=== PATIENT | female | born 1985 | race Asian ===

== ENCOUNTER → 2017-05-03 | Outpatient (CLI) | payer BC, MEDICAID ==
--- NOTE | 2017-05-03 10:46 | WOMENS IMAGING REPORT ---
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 TECHNIQUE: Real-time and static grayscale imaging performed of the right and left breast targeted to the area of clinical/mammographic concern. Selected color Doppler images recorded. LIMITATIONS: None. FINDINGS: MASS: No mass identified. Normal glandular tissue. OTHER: No other significant finding. IMPRESSION: No suspicious findings detected by ultrasound. BIRAD: 1 Negative. RECOMMENDATION: RECOMMENDED FOLLOW-UP: Follow-up as clinically indicated. COMMENT: The [employer] (ACR) has developed recommendations for screening MRI of the breasts in certain patient populations, to be used in conjunction with mammography. Breast MRI s urveillance may be appropriate for women with more than 20% lifetime risk of developing breast cancer as determined by genetic testing, significant family history of the disease, or history of mantle r adiation for Hodgkins Disease. ACR Practice Guidelines 2008. TECHNICAL DOCUMENTATION: JOB ID: [id number] [employer]- All Rights Reserved
--- NOTE | 2017-05-03 10:46 | WOMENS IMAGING REPORT ---
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 TECHNIQUE: Real-time and static grayscale imaging performed of the right and left breast targeted to the area of clinical/mammographic concern. Selected color Doppler images recorded. LIMITATIONS: None. FINDINGS: MASS: No mass identified. Normal glandular tissue. OTHER: No other significant finding. IMPRESSION: No suspicious findings detected by ultrasound. BIRAD: 1 Negative. RECOMMENDATION: RECOMMENDED FOLLOW-UP: Follow-up as clinically indicated. COMMENT: The [employer] (ACR) has developed recommendations for screening MRI of the breasts in certain patient populations, to be used in conjunction with mammography. Breast MRI s urveillance may be appropriate for women with more than 20% lifetime risk of developing breast cancer as determined by genetic testing, significant family history of the disease, or history of mantle r adiation for Hodgkins Disease. ACR Practice Guidelines 2008. TECHNICAL DOCUMENTATION: JOB ID: [id number] [employer]- All Rights Reserved
== END ==
LOC: WI 09:08
PROVIDERS: ATTEND Physician Assistant
DX: N60.11 Diffuse cystic mastopathy of right breast (principal); N60.12 Diffuse cystic mastopathy of left breast
CPT/HCPCS: 76642

== ENCOUNTER 2019-02-23 20:41 | Emergency (ER) | payer BC ==
[2019-02-23] MEDS ORDERED: ACETAMINOPHEN 325 MG TABLET PO ONE (23:00)
--- NOTE | 2019-02-23 23:01 | ER Document Report ---
ED Medical Screen (RME) - General Chief Complaint: Headache Stated Complaint: DIZZINESS,WEAKNESS Time Seen by Provider: 02/23/19 22:54 Primary Care Provider: BABS ALBRIGHT PA-C [Primary Care Provider] - Follow up as needed Mode of Arrival: Ambulatory Information source: Patient Notes: Otherwise healthy 33-year-old female presenting to the emergency department with complaints of near syncope at approximately 8:00 this evening. Patient reports she was at work standing up having a customer when all of a sudden she felt a pain on the right side of her head and felt like she was going to pass out. She states that she felt very dizzy and had to sit down. She denies any chronic medical conditions, does not take any medications daily and reports that she is overall healthy. She denies any recent illness, nausea, vomiting, fever, diarrhea, dysuria or abnormal discharge. She also reports that she felt her heart pounding at the time. Exam: Patient alert, oriented, answering all questions appropriately, no focal neurological deficits noted. I have greeted and performed a rapid initial assessment of this patient. A comprehensive ED assessment and evaluation of the patient, analysis of test results and completion of the medical decision making process will be conducted by additional ED providers. I have specifically instructed the patient or family members with the patient to immediately return to any nursing staff should anything change in the patient's condition or with their chief complaint. This medical record was dictated with voice recognizing software. There may be grammatical, syntax errors that are unintended. TRAVEL OUTSIDE OF THE [place] IN LAST 30 DAYS: No - Related Data Allergies/Adverse Reactions: No Known Allergies Allergy (Verified 02/23/19 22:52) Past Medical History - Social History Frequency of alcohol use: None Drug Abuse: None - Immunizations Hx Diphtheria, Pertussis, Tetanus Vaccination: Yes - 03/11/13 Doctor's Discharge - Discharge Referrals: BABS ALBRIGHT PA-C [Primary Care Provider] - Follow up as needed
[2019-02-23 23:37] LABS: APPEARANCE,URINE CLEAR; BILIRUBIN,URINE NEGATIVE (NEGATIVE); COLOR,URINE COLORLESS; GLUCOSE, URINE NEGATIVE (NEGATIVE); KETONES,URINE TRACE mg/dL (NEGATIVE); LEUKOCYTE ESTERASE,URINE NEGATIVE (NEGATIVE); NITRITE,URINE NEGATIVE (NEGATIVE); PROTEIN,URINE NEGATIVE (NEGATIVE); URINE SPECIFIC GRAVITY 1.001; UROBILINOGEN,URINE NEGATIVE mg/dL (<2.0)
[2019-02-24 00:34] LABS: ABSOLUTE LYMPHOCYTES (AUTO) 0.7 10^3/uL (0.5-4.7); ABSOLUTE MONOCYTES (AUTO) 0.1 10^3/uL (0.1-1.4); ABSOLUTE NEUT (AUTO) 7.2 10^3/uL (1.7-8.2); BASOPHILS % (AUTO) 0.5 % (0-2); HEMATOCRIT 37.1 % (36.0-47.0); HEMOGLOBIN 12.7 g/dL (12.0-15.5); MEAN CORPUSCULAR HEMOGLOBIN 33.4 pg (27.0-33.4); MEAN CORPUSCULAR HGB CONC 34.3 g/dL (32.0-36.0); MEAN CORPUSCULAR VOLUME 98 fl (80-97); MONOCYTES % (AUTO) 1.8 % (3-13); PLATELET COUNT 154 10^3/uL (150-450); RED CELL DISTRIBUTION WIDTH 12.2 % (11.5-14.0); SEGMENTED NEUTROPHILS % (AUTO) 88.7 % (42-78); TOTAL CELLS COUNTED % (AUTO) 100 %; WHITE BLOOD COUNT 8.2 10^3/uL (4.0-10.5)
[2019-02-24 01:05] LABS: ALBUMIN 4.5 g/dL (3.5-5.0); ALKALINE PHOSPHATASE 55 U/L (38-126); ANION GAP 12 (5-19); ASPARTATE AMINO TRANSFERASE 24 U/L (14-36); BILIRUBIN,DIRECT 0.1 mg/dL (0.0-0.4); BILIRUBIN,TOTAL 0.6 mg/dL (0.2-1.3); BLOOD UREA NITROGEN 11 mg/dL (7-20); CALCIUM 9.1 mg/dL (8.4-10.2); CARBON DIOXIDE 25 mmol/L (22-30); CHLORIDE 102 mmol/L (98-107); GLUCOSE 104 mg/dL (75-110); POTASSIUM 3.8 mmol/L (3.6-5.0); TOTAL PROTEIN 7.4 g/dL (6.3-8.2)
--- NOTE | 2019-02-24 01:58 | ER Document Report ---
ED General - General Chief Complaint: Headache Stated Complaint: DIZZINESS,WEAKNESS Time Seen by Provider: 02/23/19 22:54 Primary Care Provider: BABS ALBRIHGT PA-C [NO LOCAL MD] - Follow up as needed Mode of Arrival: Ambulatory TRAVEL OUTSIDE OF THE [place] IN LAST 30 DAYS: No - HPI Notes: 33-year-old female with a chief complaint of headache and weakness. Patient reports that she has a history of migraine headaches and is not on any prescription medication for these. She says she tends to get migraines about every 3 months. She works in a fast food restaurant and reports that she felt "stressed out" over the past week due to increased level of business. She says she is intermittently had sharp spasms in her neck and over the scalp area and at times into both shoulders. She has also complained of some shortness of breath with these episodes and has felt her heart racing. While she was at work this afternoon she felt a sudden sharp pain over the scalp area right tenriism and felt that she needs to sit down. She feels the symptoms are little different from her usual migraine and for this reason she decided to come to the emergency department. She denies any difficulty with speech or swallowing or any change in her eyesight. She denies any focal weakness or focal sensory deficit. She denies any fever sore throat cough or nasal congestion. No prescription medications were taken. No known allergies. Non-smoker. No use of drugs or alcohol. She is a 2 para 2. 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 Patient was given Tylenol at triage. Symptoms feel better although her scalp area is still sore. - Related Data Allergies/Adverse Reactions: No Known Allergies Allergy (Verified 02/23/19 22:52) Past Medical History - General Information source: Patient, Friend - Social History Smoking Status: Never Smoker Frequency of alcohol use: None Drug Abuse: None Family History: Reviewed & Not Pertinent Patient has suicidal ideation: No Patient has homicidal ideation: No - Immunizations Hx Diphtheria, Pertussis, Tetanus Vaccination: Yes - 03/11/13 Hx Pneumococcal Vaccination: 03/11/13 Review of Systems - Review of Systems Notes: Constitutional: Negative for fever. HENT: Negative for sore throat. Eyes: Negative for visual changes. Cardiovascular: Negative for chest pain. Respiratory: Negative for shortness of breath. Gastrointestinal: Negative for abdominal pain, vomiting or diarrhea. Genitourinary: Negative for dysuria. Musculoskeletal: Negative for back pain. Skin: Negative for rash. Neurological: As per HPI. 10 point ROS negative except as marked above and in HPI. Physical Exam - Vital signs Vitals: Temp Pulse Resp BP Pulse Ox 98.1 F 94 18 128/61 H 100 02/23/19 21:55 02/23/19 21:55 02/23/19 21:55 02/23/19 21:55 02/23/19 21:55 - Notes Notes: GENERAL: Well-developed well-nourished appearing in no acute distress. SKIN: Good turgor no rashes. HEAD: Normocephalic atraumatic. Tender over posterior scalp area bilaterally right greater than left with some tenderness extending into the neck area posteriorly on the right side. EYES: PERRLA. Conjunctivae and sclerae clear. EARS: CANALS AND TMS CLEAR. NOSE: CLEAR. MOUTH: Moist mucosa. Good dentition. No stridor or edema. No drooling. Throat: Clear. NECK: Supple. No masses or thyromegaly. No adenopathy. Carotids 2+ without bruits. No JVD. BACK: Symmetrical without tenderness. CHEST: Respirations unlabored. Breath sounds clear and symmetrical. HEART: Regular rhythm. No murmur gallop or rub. ABDOMEN: Soft nontender without masses, organomegaly or rebound. Bowel sounds normally active. No bruits. GENITALIA: Deferred. EXTREMITIES: No edema. No calf tenderness. Cap refill less than 1.5 seconds. Dorsalis pedis and posterior tibial pulses 3+ and symmetrical. NEUROLOGICAL: GCS 15. Alert and oriented x3. Normal gait. Fluent speech. Cranial nerves II through XII intact. Sensorimotor and cerebellar normal. Normal tone. Course - Re-evaluation Re-evalutation: 02/24/19 02:41 CBC and chemistry profile are normal. Head CT is normal. She has reproducible tenderness over posterior neck and scalp. I think this is primarily muscular contraction headache that she is experienced. She appears very stable for outpatient follow-up with PMD and I am going to prescribe type tizanidine and naproxen. - Vital Signs Vital signs: Temp Pulse Resp BP Pulse Ox 98.1 F 94 18 128/61 H 100 02/23/19 21:55 02/23/19 21:55 02/23/19 21:55 02/23/19 21:55 02/23/19 21:55 - Laboratory Result Diagrams: 02/24/19 00:22 02/24/19 00:22 Laboratory results interpreted by me: 02/23/19 02/24/19 23:19 00:22 MCV 98 H Lymph % (Auto) 9.0 L [place] % (Auto) 1.8 L Seg Neutrophils % 88.7 H Urine Ketones TRACE H Urine Blood SMALL H - Diagnostic Test Radiology reviewed: Reports reviewed - EKG Interpretation by Me EKG shows normal: Sinus rhythm, [place] Rate: Normal Rhythm: NSR Discharge - Discharge Clinical Impression: Headache Qualifiers: Headache type: tension-type Headache chronicity pattern: episodic headache Condition: Stable Disposition: HOME, SELF-CARE Instructions: Headache ([facility]) Additional Instructions: Return here as needed for new or worsening symptoms Prescriptions: Naproxen 500 mg PO BID PRN 7 Days #14 tablet PRN Reason: Tizanidine HCl 2 mg PO TID #21 tablet Forms: Return to Work Referrals: BABS ALBRIGHT PA-C [NO LOCAL MD] - Follow up as needed
--- NOTE | 2019-02-24 02:34 | RADIOLOGY REPORT (SQ) ---
CLINICAL HISTORY: headache COMPARISON: None. TECHNIQUE: CT HEAD WITHOUT IV CONTRAST on 02/24/2019 1:51 AM [employer] [employer] This exam was performed according to our departmental dose-optimization program, which includes automated exposure control, adjustment of the mA and/or kV according to patient size and/or use of iterative reconstruction technique. FINDINGS: There is no acute hemorrhage, mass effect or midline shift. Kennedy-white differentiation is preserved. There is no hydrocephalus. There is no significant volume loss for age. The calvarium is intact. Orbits and globes are unremarkable. The paranasal sinuses are clear. Mastoid air cells are clear. IMPRESSION: No acute intracranial findings.
[2019-02-24 03:23] VITALS: BP 112/46
--- NOTE | 2019-02-24 07:13 | EKG REPORT ---
SEVERITY:- OTHERWISE NORMAL ECG - SINUS RHYTHM BORDERLINE RIGHT AXIS DEVIATION : Confirmed by: Yoshi Larson MD 24-Feb-2019 07:12:48
== END 2019-02-24 03:23 | disposition home or self-care (01) ==
LOC: ER 20:41
DX: R51 Headache (principal); R53.1 Weakness; R25.2 Cramp and spasm; R06.02 Shortness of breath; Z86.69 Personal history of other diseases of the nervous system and sense organs
CPT/HCPCS: 36415; 70450; 80053; 81001; 84484; 84703; 85025; 93005; 93010; 99284